=== PATIENT | female | born 1990 | race Two or more races ===

== ENCOUNTER 2019-07-08 17:04 | Emergency (ER) | payer MEDICAID ==
[~2019-07-08] VITALS: Ht 170.2 cm; Wt 81.6 kg
[2019-07-08 17:38] VITALS: BP 99/62
--- NOTE | 2019-07-08 17:50 | NUR ---
ED Nurse Note: pt walked in to ED with two sons due to right earache for 2 weeks. pt also c/o hearing loss. able to communicate without any difficulty. AAO x4. respirations even and non-labored noted. will wait for the further order.
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
[2019-07-08] MEDS ORDERED: DEBROX15 M1 RIGHT EAR (18:56)
[2019-07-08 19:06] VITALS: BP 99/62
--- NOTE | 2019-07-08 19:06 | NUR ---
ER DISCHARGE NOTE: Patient is cleared to be discharged per ERMD, pt is aox4, on room air, with stable vital signs. pt was given dc and prescription instructions, pt was able to verbalize understanding, pt id band removed without complications. pt is able to ambulate with steady gait. pt took all belongings.
== END 2019-07-08 19:07 | disposition home or self-care (01) ==
LOC: EMR 17:57
DX: H61.21 Impacted cerumen, right ear (principal)
CPT/HCPCS: 99282

== ENCOUNTER 2019-10-14 17:01 | Emergency (ER) | payer BC, MEDICAID ==
[~2019-10-14] VITALS: Ht 170.2 cm; Wt 63.5 kg
[~2019-10-14 17:01] MED LIST: DEBROX15 M1 RIGHT EAR
[2019-10-14 18:06] VITALS: BP 110/78
[2019-10-14] MEDS ORDERED: ZYRTEC10 MG ORAL (19:38)
--- NOTE | 2019-10-14 19:39 | Emergency Room Report ---
History of Present Illness General Chief Complaint: Flu Like Symptoms Source: Patient Present Illness HPI 29-year-old female presents with cough, congestion, diarrhea, body aches, sore throat x1 week symptoms have been vague/improving, patient denies any chest pain or shortness of breath no aggravating relieving factors severity is mild, constant, patient presents for evaluation to see if she needs antibiotics Allergies: Coded Allergies: No Known Allergies (Unverified , 07/08/19) Patient History Past Medical History: see triage record Last Menstrual Period: 09/21/19 Now: No Reviewed Nursing Documentation: PMH: Agreed; PSxH: Agreed Nursing Documentation-PMH Past Medical History: No Stated History Review of Systems All Other Systems: negative except mentioned in HPI Physical Exam Vital Signs Date Time Temp Pulse Resp B/P (MAP) Pulse Ox O2 Delivery O2 Flow Rate FiO2 10/14/19 17:13 98.4 69 18 116/75 (89) 96 Room Air Sp02 EP Interpretation: reviewed, normal General Appearance: well appearing, no apparent distress, alert Head: normocephalic, atraumatic Eyes: bilateral eye PERRL, bilateral eye EOMI ENT: uvula midline, moist mucus membranes, nasal congestion Neck: supple, thyroid normal, supple/symm/no masses Respiratory: lungs clear, no respiratory distress, no retraction, no accessory muscle use Cardiovascular #1: normal peripheral pulses, regular rate, rhythm, no edema, no gallop, no murmur Gastrointestinal: non tender, soft, no guarding, no rebound Musculoskeletal: normal inspection Neurologic: alert, oriented x3 Psychiatric: mood/affect normal Skin: no rash, warm/dry Medical Decision Making Diagnostic Impression: Primary Impression: Viral syndrome ER Course 29-year-old female presents most likely with a viral syndrome, vitals unremarkable, differential diagnosis also includes pneumonia, bronchitis, chest x-ray negative Disposition home with return precautions symptomatic care Chest X-Ray Diagnostic Results Chest X-Ray Diagnostic Results : Chest X-Ray Ordered: Yes # of Views/Limited/Complete: 1 View Indication: Shortness of Breath EP Interpretation: Yes Interpretation: no consolidation, no effusion, no pneumothorax, no acute cardiopulmonary disease Impression: No acute disease Electronically Signed by: Wagner Zapata MD Last Vital Signs Date Time Temp Pulse Resp B/P (MAP) Pulse Ox O2 Delivery O2 Flow Rate FiO2 10/14/19 18:06 98.4 68 18 110/78 96 Room Air Disposition: HOME, SELF-CARE Condition: Stable Scripts Cetirizine Hcl* (ZYRTEC*) 10 Mg Tablet 10 MG ORAL DAILY PRN for congestion, #30 TAB 0 Refills Prov: Wagner Zapata MD 10/14/19 Referrals: [facility] Departure Forms: Return to Work Return to Work Date: Oct 15, 2019 Patient Instructions: Upper Respiratory Infection, Adult, [id number] Additional Instructions: The patient was provided with discharge instructions, notified to follow-up with a primary care doctor and or specialist in the next 24-48 hours, and to return to the ED if they have worsening of their symptoms. Please note that this report is being documented using [employer] technology. This can lead to erroneous entry secondary to incorrect interpretation by the dictating instrument. Wagner Zapata MD Oct 14, 2019 19:39
[2019-10-14 19:42] VITALS: BP 110/78
--- NOTE | 2019-10-15 10:58 | Diagnostic Imaging Report ---
Indication: Cough Technique: One view of the chest Comparison: none Findings: Lungs and pleural spaces are clear. Heart size is normal. Impression: No acute process
== END 2019-10-14 19:41 | disposition home or self-care (01) ==
LOC: EMR 17:53
DX: B34.9 Viral infection, unspecified (principal)
CPT/HCPCS: 71045; 81025; 99283